=== PATIENT | male | born 1990 ===

== ENCOUNTER 2020-10-21 16:47 | Emergency (ER) | payer OTHER ==
[~2020-10-21] VITALS: Ht 180.3 cm; Wt 86.2 kg
[2020-10-21] MEDS ORDERED: MELOXICAM5 MG PO (20:32)
[2020-10-21] MEDS ORDERED: PEPCID AC20 MG PO (20:32)
== END 2020-10-21 22:29 | disposition home or self-care (01) ==
LOC: ER 16:47
DX: I86.1 Scrotal varices (principal); N50.812 Left testicular pain; N50.811 Right testicular pain; N39.0 Urinary tract infection, site not specified